=== PATIENT | female | born 1960 | race Two or more races ===

== ENCOUNTER 2023-04-13 16:02 | Emergency (ER) | payer SELFPAY ==
[~2023-04-13] VITALS: Ht 177.8 cm; Wt 160.0 kg
[2023-04-13] MEDS ORDERED: ACETAMINOPHEN 500 MG TAB PO ONE (16:45)
[2023-04-13 17:03] VITALS: BP 136/92; PULSE 99; RESP 18; O2SAT 96
[2023-04-13 17:17] VITALS: TEMP 98.7
== END 2023-04-13 17:22 | disposition home or self-care (01) ==
LOC: ER 16:02 → EDBD 16:02 → ER 17:21
DX: S16.1XXA Strain of muscle, fascia and tendon at neck level, initial encounter (principal); M54.59 Other low back pain; I10 Essential (primary) hypertension; J44.9 Chronic obstructive pulmonary disease, unspecified; V43.52XA Car driver injured in collision with other type car in traffic accident, initial encounter; Y93.I9 Activity, other involving external motion; Y92.89 Other specified places as the place of occurrence of the external cause; Y99.8 Other external cause status
CPT/HCPCS: 72040